=== PATIENT | female | born 1980 | race American Indian/Alaskan Native ===

== ENCOUNTER → 2024-09-03 | Outpatient (CLI) | payer OTHER, SELFPAY ==
--- NOTE | 2024-09-03 08:30 | XR_ITS ---
Examination: CT chest, without intravenous contrast. Sagittal and coronal 2-D reconstructions. Exam date and time: September 03, 2024 1017 hours INDICATIONS: Nicotine dependence, smoking history [address], [address] chest July 10, 2023 6 mm pulmonary nodule right upper lobe CTDI:vol (mGy) 18.1 DLP: (mGycm) 724 Technique: Multiple 3.0 mm axial sections of the chest to been obtained. Bone and lung density settings are obtained. Sagittal and coronal 2-D reconstructions have been obtained. Low dose protocols were performed. One or more of the following dose reduction techniques were used; automated exposure control, adjustment of the mA and/or KV according to patient size, use of iterative reconstruction technique. Findings: No thoracic aortic aneurysm dilatation Pulmonary artery segments are not enlarged No paratracheal tracheobronchial or bronchopulmonary adenopathy Pulmonary nodule right upper lobe 4 mm compared to 6 mm on the prior study No definite new pulmonary nodules No pneumonia or pulmonary edema No pleural disease No focal liver or splenic lesion No gallstones No pancreatic mass Kidneys partially visualized no hydronephrosis IMPRESSION: Pulmonary nodule right upper lobe measures 4 mm compared to 6 mm on the prior study No new pulmonary nodules
[2024-09-03 09:38] LABS: HCG Qualitative,Urine Negative
== END | disposition home or self-care (01) ==
PROVIDERS: PCP Physician Assistant; Referring Provider Physician Assistant; Visit Provider Physician Assistant
DX: R91.1 Solitary pulmonary nodule (principal); F17.200 Nicotine dependence, unspecified, uncomplicated; Z32.00 Encounter for pregnancy test, result unknown
CPT/HCPCS: 71250; 81025